=== PATIENT | male | born 1935 | race Caucasian/White ===

== ENCOUNTER 2016-10-25 16:26 | Emergency (ER) | payer OTHER ==
[~2016-10-25] VITALS: Ht 177.8 cm; Wt 82.3 kg
[~2016-10-25 16:26] MED LIST: ACETAMINOPHN-T1 EACH PO; ASPIR 8181 M1 PO; ASPIR-TRIN325 M1 PO; BACTRIM,SEPT1 TABLET PO; CRESTOR20 MG PO; DESYREL100 MG PO; FEOSOL325 MG PO; LISINOPRIL40 MG PO; NASACORT10.8 ML BOTH NARES; NITROGLYCERIN0.4 MG SL; Omega III EPA + DHA PO; PREDNISONE50 MG PO; SENOKOT S,PE1 TABLET PO; TOPROL XL50 MG PO; VITAMIN D2000 INTUN PO; VOLTAREN 1% GE100 GM TP; VYTORIN 10/81 TABLET PO; Vicodin,Lortab 5/500 PO; Vitamin B-12 PO
[2016-10-25] MEDS ORDERED: VESICARE5 MG PO (17:01)
[2016-10-25] MEDS ORDERED: TRAVATAN Z5 ML BOTH EYES (17:01)
[2016-10-25 18:03] VITALS: BP 167/85
== END 2016-10-25 18:03 | disposition home or self-care (01) ==
LOC: EME 16:26
PROC: 0HQGXZZ Repair Left Hand Skin, External Approach (ICD-10-PCS; principal; 2016-10-25)
PROC: 3E0234Z Introduction of Serum, Toxoid and Vaccine into Muscle, Percutaneous Approach (ICD-10-PCS; 2016-10-25)
DX: S61.213A Laceration without foreign body of left middle finger without damage to nail, initial encounter (principal); W29.8XXA Contact with other powered hand tools and household machinery, initial encounter; Z23 Encounter for immunization; I10 Essential (primary) hypertension; Z79.82 Long term (current) use of aspirin; Z79.52 Long term (current) use of systemic steroids
CPT/HCPCS: 99281; 99284; S0020